=== PATIENT | female | born 1975 | race African-American/Black ===

== ENCOUNTER 2018-01-14 19:14 | Emergency (ER) | payer OTHER, BC ==
[~2018-01-14] VITALS: Ht 162.6 cm; Wt 88.7 kg
[2018-01-14] MEDS ORDERED: MOTRIN600 MG PO (19:37)
[2018-01-14] MEDS ORDERED: FLEXERIL10 MG PO (19:37)
[2018-01-14 20:03] VITALS: BP 121/78
== END 2018-01-14 20:04 | disposition home or self-care (01) ==
LOC: EME 19:14 → RME 19:14
DX: S39.012A Strain of muscle, fascia and tendon of lower back, initial encounter (principal); V49.40XA Driver injured in collision with unspecified motor vehicles in traffic accident, initial encounter; Y92.410 Unspecified street and highway as the place of occurrence of the external cause
CPT/HCPCS: 99281; 99283

== ENCOUNTER 2018-02-22 14:36 | Emergency (ER) | payer BC ==
[~2018-02-22] VITALS: Ht 162.6 cm; Wt 87.3 kg
[~2018-02-22 14:36] MED LIST: FLEXERIL10 MG PO; MOTRIN600 MG PO
[2018-02-22] MEDS ORDERED: VENTOLIN HFA18 GM IH (15:31)
[2018-02-22] MEDS ORDERED: ZITHROMAX250 MG PO (15:31)
[2018-02-22] MEDS ORDERED: PREDNISONE50 MG PO (15:31)
[2018-02-22 16:30] VITALS: BP 117/87
== END 2018-02-22 16:31 | disposition home or self-care (01) ==
LOC: EME 14:36
DX: J40 Bronchitis, not specified as acute or chronic (principal); F17.200 Nicotine dependence, unspecified, uncomplicated
CPT/HCPCS: 71046; 94640; 99281; 99284; J7512